=== PATIENT | male | born 1950 | race Asian ===

== ENCOUNTER 2020-08-14 20:48 | Inpatient (IN) | payer OTHER, BC ==
[~2020-08-14] VITALS: Ht 167.6 cm; Wt 45.4 kg
--- NOTE | 2020-08-14 20:48 | NUR ---
PT MEGHAN BAJWAS. TAKEN TO BED 4
[2020-08-14 20:55] VITALS: BP 126/75
--- NOTE | 2020-08-14 20:56 | NUR ---
PT CONNECTED TO THE TURN LASTER. BED IS LOCKED AND IN LOWEST POSITION. SIDE RAILSX1. CALL LIGHT WITHIN REACH. NO ACUTE DISTRESS NOTED AT THIS TIME.
--- NOTE | 2020-08-14 20:56 | NUR ---
69 Y/O MALE BIBA S/P BLADDER RECONSTRUCTION SURGERY C/O 01/19 SHARP DIFFUSE ABD PAINX3 DAYS. PT STATES HE HASNT HAD A BM IN 3 DAYS AND IS STILL PASSING GAS. PT WAS DC'ED FROM [facility] ON THURSDAY. PT HAS A MIDLINE CATHETER PLACED IN THE LEFT UPPER ARM. PT HAS A SERG DRAIN ON THE RIGHT MID ABD WITH SUTURES HOLDING IT. PT HAS A VERTICAL INCISION MIDLINE ON HIS ABD COVERED BY STERI STRIPS. PT HAS 2 MORE HEALED INCISION ON THE LEFT UPPER QUADRANT AND LEFT LOWER QUADRANT, NO DRAINAGE NOTED FROM THESE SITES. BOWEL SOUNDS ARE HYPOACTIVE. ABD TENDER TO PALPATION. LUNG SOUNDS CLEAR. PT ADMITS TO NAUSEA AND DENIES VOMITING. PT DENIES FEVER/CHILLS/DIARRHEA AT THIS TIME. NO ACUTE DISTRESS NOTED AT THIS TIME. PMH: COPH, CKD, CANCER NKA
--- NOTE | 2020-08-14 21:00 | NUR ---
PT CONNECTED TO THE FARMWORKER [employer]. PT IS SITTING IN SEMI FOWLERS POSITION. BED IS LOCKED AND IN LOWEST POSITION. SIDE RAILSX1. NO ACUTE DISTRESS NOTED AT THIS TIME, NO NEW ORDERS AT THIS TIME.
--- NOTE | 2020-08-14 22:00 | NUR ---
UNABLE TO COLLECT URINE SPECIMEN AT THIS TIME DUE TO PT NOT PRODUCING ENOUGH URINE IN THE MENDEZ CATHETER
[2020-08-14] MEDS ORDERED: ONDANSETRON 4 MG/2 ML VIAL IVP ONE (22:30)
[2020-08-14] MEDS ORDERED: MORPHINE SULFATE 4 MG/ML SYR IVP ONE (22:30)
--- NOTE | 2020-08-14 22:50 | NUR ---
LAB AT BEDSIDE
--- NOTE | 2020-08-14 22:55 | NUR ---
PT STATED HE DOESN'T WANT A CT AT THIS TIME AND THAT HE WOULD LIKE TO SPEAK WITH THE DR FOR OTHER OPTIONS. LEENA GROVES MADE AWARE
--- NOTE | 2020-08-14 23:00 | NUR ---
PT CONNECTED TO THE KILN WORKER. PT IS SITTING IN SEMI FOWLERS POSITION. BED IS LOCKED AND IN LOWEST POSITION. SIDE RAILSX1. NO ACUTE DISTRESS NOTED AT THIS TIME, NO NEW ORDERS AT THIS TIME.
[2020-08-14 23:04] LABS: BASOPHILS # (AUTO) 0.2 K/uL (0.00-0.22); BASOPHILS % (AUTO) 2.1 % (0.0-2.0); HEMATOCRIT 29.9 % (36-52); HEMOGLOBIN 9.3 g/dL (12.0-18.0); LYMPHOCYTES # (AUTO) 0.4 K/uL (2.0-11.5); LYMPHOCYTES % (AUTO) 4.3 % (20.5-51.1); MEAN CORPUSCULAR HEMOGLOBIN 26 pg (27-31); MEAN CORPUSCULAR HGB CONC 31 g/dL (33-37); MONOCYTES # (AUTO) 0.6 K/uL (0.8-1.0); MONOCYTES % (AUTO) 6.9 % (1.7-9.3); NEUTROPHILS # (AUTO) 7.9 K/uL (1.8-7.7); NEUTROPHILS % (AUTO) 86.7 % (42.2-75.2); PLATELET COUNT (AUTO) 405 K/uL (140-450); RED BLOOD CELL COUNT(AUTO) 3.65 MIL/uL (4.20-6.10); RED CELL DISTRIBUTION WIDTH 20.3 % (11.6-13.7); WHITE BLOOD COUNT (AUTO) 9.1 K/uL (4.8-10.8)
[2020-08-14 23:28] LABS: ANION GAP 14.8 (8-16); CARBON DIOXIDE 23.7 mmol/L (21-32); CREATININE 2.3 mg/dL (0.6-1.3); POTASSIUM 5.5 mmol/L (3.5-5.1); TOTAL BILIRUBIN 0.3 mg/dL (0.0-1.0)
--- NOTE | 2020-08-14 23:40 | NUR ---
PER RADIOLOGY TO CONSULT MD TO REVIEW LABS PRIOR TO SENDING PT TO CT SCAN
--- NOTE | 2020-08-15 00:10 | NUR ---
Dr. Velazco examining patient.
--- NOTE | 2020-08-15 00:25 | NUR ---
SERVICE LINE COORDINATOR AT BEDSIDE TO TAKE PT TO CT WITHOUT CONTRAST
--- NOTE | 2020-08-15 00:45 | NUR ---
PT CONNECTED TO THE TIRE MAN. PT IS SITTING IN SEMI FOWLERS POSITION. BED IS LOCKED AND IN LOWEST POSITION. SIDE RAILSX1. NO ACUTE DISTRESS NOTED AT THIS TIME, NO NEW ORDERS AT THIS TIME.
--- NOTE | 2020-08-15 01:00 | NUR ---
UNABLE TO COLLECT URINE SPECIMEN AT THIS TIME DUE TO PT NOT PRODUCING ENOUGH URINE IN THE MENDEZ CATHETER
[2020-08-15] MEDS ORDERED: MORPHINE SULFATE 4 MG/ML SYR IVP ONE (01:25)
--- NOTE | 2020-08-15 01:55 | NUR ---
REMOVED 100ML OF YELLOW FLUID FROM SERG DRAIN
--- NOTE | 2020-08-15 01:57 | NUR ---
changed wound dressing; patient tolerated well
[2020-08-15] MEDS ORDERED: NACL 0.9% 1,000 ML IV ONE (02:10)
[2020-08-15] MEDS ORDERED: DEXT 5% / NACL 0.45% 500 ML IV ONE (02:15)
--- NOTE | 2020-08-15 02:15 | NUR ---
PT CONNECTED TO THE DAY HAUL OR FARM CHARTER BUS DRIVER. PT IS SITTING IN SEMI FOWLERS POSITION. BED IS LOCKED AND IN LOWEST POSITION. SIDE RAILSX1. NO ACUTE DISTRESS NOTED AT THIS TIME.
--- NOTE | 2020-08-15 02:40 | NUR ---
collected pcr and nenita swab
--- NOTE | 2020-08-15 02:42 | NUR ---
pt notified of need for NG tube, pt is reluctant and is requesting sedatives, will notify md
--- NOTE | 2020-08-15 02:46 | NUR ---
DR. MATTHEWS NOTIFIED OF PT REFUSING NG TUBE UNLESS HE RECEIVES SEDATIVE PRIOR TO PLACEMENT
[2020-08-15] MEDS ORDERED: SULF-58 PO (02:50)
[2020-08-15] MEDS ORDERED: TRAM50TA1 PO (02:50)
[2020-08-15] MEDS ORDERED: SENN-73 PO (02:50)
[2020-08-15] MEDS ORDERED: XAR10 PO (02:50)
--- NOTE | 2020-08-15 02:50 | NUR ---
pcr and nenita swab collected and walked over to lab
--- NOTE | 2020-08-15 03:00 | NUR ---
UNABLE TO COLLECT URINE SPECIMEN AT THIS TIME DUE TO PT NOT PRODUCING ENOUGH URINE IN THE MENDEZ CATHETER
--- NOTE | 2020-08-15 03:15 | NUR ---
PT CONNECTED TO THE STORES NAVAL. PT IS SITTING IN SEMI FOWLERS POSITION. BED IS LOCKED AND IN LOWEST POSITION. SIDE RAILSX1. NO ACUTE DISTRESS NOTED AT THIS TIME.
[2020-08-15] MEDS ORDERED: LORazepam 2 MG/ML VIAL ONE (03:31)
--- NOTE | 2020-08-15 03:33 | NUR ---
TELEPHONE ORDER FROM FOR ATIVAN 1 MG IVP ONCE PRIOR TO INSERTING NG TUBE.
[2020-08-15] MEDS ORDERED: LORazepam 2 MG/ML VIAL IM/IVP PRN ×2 (03:35→07:15)
--- NOTE | 2020-08-15 04:04 | NUR ---
X-Ray at bedside.
--- NOTE | 2020-08-15 04:08 | NUR ---
PT REMOVED NG TUBE AT THIS TIME. WILL NOTIFY ERMD
--- NOTE | 2020-08-15 04:10 | NUR ---
ADMIT DR MATTHEWS NOTIFED OF PT REMOVING NG TUBE
--- NOTE | 2020-08-15 04:11 | NUR ---
CALLED TO GIVE REPORT TO EDMUND ALMANZA FOR TRANSFER OF CARE AT THIS TIME.
--- NOTE | 2020-08-15 04:15 | NUR ---
PT IS RESTING. VISIBLE RISE AND FALL OF CHEST NOTED. CONNECTED TO THE STOCK SPECULATOR. BED IS LOCKED AND IN LOWEST POSITION. SIDE RAILSX1. NO ACUTE DISTRESS NOTED AT THIS TIME
--- NOTE | 2020-08-15 04:22 | NUR ---
UNABLE TO COLLECT URINE SPECIMEN AT THIS TIME DUE TO PT NOT PRODUCING ENOUGH URINE IN THE MENDEZ CATHETER
--- NOTE | 2020-08-15 04:50 | NUR ---
Patient will be admitted to care of . Admited to MED-SURG. Will go to room 117A. Belongings list completed. Report to EDMUND ALMANZA.
[2020-08-15 05:25] VITALS: BP 118/68
[2020-08-15] MEDS ORDERED: ZOLPIDEM 5 MG TAB PO PRN (07:15)
[2020-08-15] MEDS ORDERED: MORPHINE SULFATE 2 MG/ML SYR IVP PRN (07:15)
[2020-08-15] MEDS ORDERED: AZITHROMYCIN 250 MG TAB PO ONE (07:15)
[2020-08-15] MEDS ORDERED: ACETAMINOPHEN 325 MG TAB PO PRN (07:15)
[2020-08-15] MEDS ORDERED: ONDANSETRON 4 MG/2 ML VIAL IVP PRN (07:15)
[2020-08-15] MEDS ORDERED: ALBUTEROL HFA MDI 90 MCG/ACTUATION 8 GM INH PRN (07:15)
[2020-08-15] MEDS ORDERED: DOCUSATE SODIUM 100 MG GELCAP PO PRN (07:15)
[2020-08-15] MEDS ORDERED: HYDROcodone/APAP 5/325 MG 1 TAB TAB PO PRN (07:15)
--- NOTE | 2020-08-15 07:30 | NUR ---
RECEIVED BEDSIDE REPORT FROM GROUND HOST/HOSTESS NURSE. PT IS A0X 3. RESPIRATIONS EVEN AND UNLABORED. NO S/S OF RESPIRATORY DISTRESS NOTED. PATIENT SKIN IS WARM AND DRY. HAS INCISION SITE ON THE ABDOMEN. HAS MENDEZ CATH IN PLACE. INTACT AND PATENT. PLAN OF CARE WAS DISCUSSED. SAFETY PRECAUTIONS IN PLACE. BED IN LOW POSITION. CALL LIGHT WITHIN REACH WILL CONTINUE TO MONITOR.
[2020-08-15 08:49] LABS: BASOPHILS % (AUTO) 0.2 % (0.0-2.0); HEMATOCRIT 29.3 % (36-52); HEMOGLOBIN 8.9 g/dL (12.0-18.0); LYMPHOCYTES # (AUTO) 0.5 K/uL (2.0-11.5); LYMPHOCYTES % (AUTO) 2.9 % (20.5-51.1); MEAN CORPUSCULAR HEMOGLOBIN 25 pg (27-31); MEAN CORPUSCULAR HGB CONC 30 g/dL (33-37); MEAN CORPUSCULAR VOLUME 83.1 fL (80-94); MONOCYTES # (AUTO) 1.1 K/uL (0.8-1.0); MONOCYTES % (AUTO) 6.1 % (1.7-9.3); NEUTROPHILS # (AUTO) 16.4 K/uL (1.8-7.7); NEUTROPHILS % (AUTO) 90.8 % (42.2-75.2); PLATELET COUNT (AUTO) 394 K/uL (140-450); RED BLOOD CELL COUNT(AUTO) 3.53 MIL/uL (4.20-6.10); RED CELL DISTRIBUTION WIDTH 20.3 % (11.6-13.7); WHITE BLOOD COUNT (AUTO) 18.1 K/uL (4.8-10.8)
[2020-08-15] MEDS ORDERED: VITAMIN D 400 IU TAB PO SCH (09:00)
[2020-08-15] MEDS ORDERED: ZINC SULF 220 MG CAP PO SCH (09:00)
[2020-08-15] MEDS ORDERED: ASCORBIC ACID 500 MG TAB PO SCH (09:00)
[2020-08-15] MEDS ORDERED: ENOXAPARIN 30 MG/0.3 ML SYR SUBQ SCH (09:00)
[2020-08-15] MEDS ORDERED: ENOXAPARIN 40 MG/0.4 ML SYR SUBQ SCH (09:00)
[2020-08-15] MEDS ORDERED: DEXAMETHASONE 4 MG/ML VIAL IVP SCH (09:20)
[2020-08-15] MEDS ORDERED: NACL 0.9% 1,000 ML IV SCH (09:40)
--- NOTE | 2020-08-15 09:44 | NUR ---
PATIENT HAS BEEN SCREENED AND CATEGORIZED HIGH NUTRITION RISK. PATIENT WILL BE SEEN WITHIN 1-2 DAYS OF ADMISSION. 08/15/20-08/16/[address]
--- NOTE | 2020-08-15 09:44 | NUR ---
ALL SCHEDULED MEDS GIVEN. PT IS STABLE. NO DISTRESS NOTED. WILL CONTINUE TO MONITOR.
[2020-08-15 10:10] LABS: PROTHROMBIN TIME 9.9 secs (10.8-13.4)
[2020-08-15 10:13] LABS: ALBUMIN 2.6 g/dL (3.4-5.0); ANION GAP 18.8 (8-16); CARBON DIOXIDE 21.2 mmol/L (21-32); CREATININE 2.8 mg/dL (0.6-1.3); TOTAL BILIRUBIN 0.3 mg/dL (0.0-1.0)
[2020-08-15 10:24] LABS: FREE T4 (FREE THYROXINE) 0.79 ng/dL (0.76-1.46); MAGNESIUM 2.2 mg/dL (1.8-2.4); PHOSPHORUS 5.3 mg/dL (2.5-4.9); THYROID STIMULATING HORMONE 6.1 uIU/mL (0.34-3.74)
[2020-08-15 10:56] LABS: CHOL/HDL RATIO 2.4 (1-4.5)
[2020-08-15] MEDS ORDERED: DEXTROSE 50% 50 ML SYR IVP SCH (11:40)
[2020-08-15] MEDS ORDERED: INSULIN REGULAR, HUMAN 100 UNIT/ML VIAL IVP SCH (11:40)
[2020-08-15] MEDS ORDERED: CALCIUM GLUCONATE 10% 1000 MG/10 ML VIAL IVP ONE (11:40)
--- NOTE | 2020-08-15 12:50 | NUR ---
DR. STANFORD WENT TO SEE PATIENT. HE IRRIGATED PATIENT MENDEZ. MUCUS WAS REMOVED DURING IRRIGATION. NEW ORDERS RECEIVED FROM DR. STANFORD. PATIENT'S MENDEZ IS TO BE IRRIGATED Q4H. PT IS STABLE. WILL CONTINUE TO MONITOR.
[2020-08-15 13:00] VITALS: BP 127/65
[2020-08-15] MEDS ORDERED: CALCIUM GLUCONATE 10% 2,000 MG in NACL 0.9% 100 ML IV SCH (13:00)
--- NOTE | 2020-08-15 13:00 | NUR ---
TRANS IN FROM [id number] DUE BOWEL OBSTRUCTION AND RUPTURE URINARY BLADDER. PT. AWAKE ALERT AND RESPONSIVE TO QUERIES.NOT IN ANY FORM OF DISTRESS.ON ROOM AIR W/ O2 SAT 99%.IVF OF NSS RESTARTED @ 100ML/HR.PM CARE RENDERED.AND PT SLEPT AFTER.
--- NOTE | 2020-08-15 13:17 | NUR ---
DC PLANNIN YRS OLD MALE PATIENT WAS ADMITTED FROM HOME WITH A DX OF SMALL BOWEL OBSTRUCTION. PT HAS A HX OF BLADDER CANCER SURGERY ON THE 08/08/20 , PT HAS BILATERAL UROSTOMY TUBE. PT HAD SURGERY S/P CYSTECTOMY AND NEOBLADDER AT [facility]. SEEN BY UROLOGIST DR STANFORD. PT HAS A TRANSFER ORDER TO [facility] WHERE HE HAD HIS BLADDER SURGERY FOR CARCINOMA POSSIBLE RAPTURE OF BLADDER. . FAXED TO [facility], [facility], [facility] AND [facility]. CM TO FOLLOW Addendum: 08/15/20 at 1650 by Katie Navarro RN DC PLANNING: CALLED [facility] TRANSF[facility] [phone] UNABLE TO TALK TO ANYONE LEFT SEVERAL MESSAGE. WILL KEEP TRYING CM TO FOLLOW Addendum: 08/15/20 at 1707 by Katie Navarro RN DC PLANNING: CALLED [facility] SQL SERVER DEVELOPER SPOKE WITH JOCELYN STATED WILL TRANSFER ME TO BED BOARD ON HOLD FOR MORE THAN 45 MIN, NO ONE TO TALK TO AT THIS TIME. CM TO FOLLOW
--- NOTE | 2020-08-15 13:45 | NUR ---
GAVE REPORT TO ICU NURSE. TRANSFERRED PATIENT TO ICU OVERFLOW ROOM 131
--- NOTE | 2020-08-15 13:50 | NUR ---
ALL SCHEDULED MEDS GIVEN. PT IS STABLE NO DISTRESS NOTED. WILL CONTINUE TO MONITOR.
[2020-08-15 14:00] VITALS: BP 143/73
[2020-08-15 15:00] VITALS: BP 157/88
--- NOTE | 2020-08-15 15:00 | NUR ---
DURING ROUNDS PT FAST ASLEEP NO FACIAL GRIMACES SEEN.KEPT WARM W/ 2 BLANKET. STILL WAITING FOR ROOM AVAILABILITY IN [facility].
[2020-08-15 16:00] VITALS: BP 152/67
--- NOTE | 2020-08-15 16:17 | NUR ---
SOCIAL WORK NOTE: SW WAS UNABLE TO MEET PATIENT AT BEDSIDE. NORRIS CONTACTED EMERGENCY CONTACT ANTWON DAVIS [phone] AND LEFT VM TO COMPLETE ASSESSMENT. NORRIS WILL FOLLOW UP.
--- NOTE | 2020-08-15 16:30 | NUR ---
PT'S TRANSFER STILL PENDING.PT GOT IRRITATED AND WANTED TO GO HOME.TRIED TO PACIFY HIM AND TOLD HIM THAT WE ARE WAITING FOR BED AVAILABILITY IN [facility].
--- NOTE | 2020-08-15 18:35 | NUR ---
ALL NEEDS ATTENDED AND MET DURING THE SHIFT.PT W/ ATTITUDE.NON COOPERATIVE.TO BE ENDORSED TO N [place] NA[employer]ER STILL PENDING TRANSFER.CONDITION UNCHANGED FOR CONTINUITY OF CARE.
[2020-08-15] MEDS ORDERED: SODIUM ZIRCONIUM CYCLOSILICATE 10 GM POWD.PACK PO ONE (19:25)
[2020-08-15 20:00] VITALS: BP 150/89
--- NOTE | 2020-08-15 20:00 | NUR ---
Received pt. angry and uncooperative with care; insisting on wanting to eat despite Dx of SBO & refusing to believe explanations of results of tests. Pt. insisting he can make decisions for himself and would like to leave & stated he was willing to sign out AMA (Against Medical Advice). Obed, binder roller, called & left message; no response @ this time. Charge Nurse, Crystal & Supply Chain Program Manager made aware. Dr. Fregoso called and made aware; stated it is okay for patient to go as pt. refuses to comply w/ care & to believe all MDs diagnosis & orders despite multiple attempts at education & explanations. Risk of & worsening of condition emphasized to patient.
--- NOTE | 2020-08-15 21:15 | NUR ---
Pt. signed out AMA. Chinmay, pt friend, contacted @ & agreed to pickup pt. from lobby. Friend instructed to bring pt. to another medical facility where pt. can continue treatment; Chinmay said he will try but that pt. is very stubborn. Brought pt. to car per wheelchair & assisted as needed.
[2020-08-16] MEDS ORDERED: AZITHROMYCIN 250 MG TAB PO SCH (09:00)
== END 2020-08-15 21:25 | disposition left against medical advice (07) | DRG 871 ==
LOC: MED 20:48 → MMU 08-15 02:10 → EDBD 08-15 02:10 → MTU 08-15 03:38 → MMU 08-15 12:50 → MTU 08-15 14:00 → MMU 08-15 14:48
PROVIDERS: ADMIT Family Medicine; ATTEND Family Medicine
PROC: 0D9670Z Drainage of Stomach with Drainage Device, Via Natural or Artificial Opening (ICD-10-PCS; principal; 2020-08-15)
DX: A41.9 Sepsis, unspecified organism (principal); N17.0 Acute kidney failure with tubular necrosis; U07.1 COVID-19; N13.30 Unspecified hydronephrosis; E87.1 Hypo-osmolality and hyponatremia; K56.609 Unspecified intestinal obstruction, unspecified as to partial versus complete obstruction; J44.9 Chronic obstructive pulmonary disease, unspecified; N18.9 Chronic kidney disease, unspecified; Z53.29 Procedure and treatment not carried out because of patient's decision for other reasons; E87.5 Hyperkalemia; E83.39 Other disorders of phosphorus metabolism; Z85.51 Personal history of malignant neoplasm of bladder
CPT/HCPCS: 36415; 71045; 74250; 80053; 82150; 82948; 83036; 83690; 83735; 83880; 84100; 84439; 84443; 84484; 85025; 85610; 85730; 87081; J0610; J0696; J1100; J1650; J2060; J2270; J2405; J7060; U0003

== ENCOUNTER 2024-01-25 13:24 | Inpatient (IN) | payer OTHER, MEDICAID ==
[~2024-01-25] VITALS: Ht 152.4 cm; Wt 40.8 kg
[~2024-01-25 13:24] MED LIST: SENN-73 PO; SULF-58 PO; TRAM-748 PO; XAR10 PO
[2024-01-25 13:30] VITALS: BP 94/60; PULSE 56; RESP 15; TEMP 97.7; O2SAT 97
[2024-01-25] MEDS ORDERED: cefTRIAXone 1,000 MG VIAL ONE (13:53)
[2024-01-25] MEDS: NACL 0.9% 1,000 ML IV SCH (14:00)
[2024-01-25] MEDS: NACL 0.9% 1,000 ML IV ONE ×2 (14:00→15:40)
[2024-01-25] MEDS: cefTRIAXone 1,000 MG in DEXT 5% MINI-BAG PLUS 50 ML IV ONE (14:01)
[2024-01-25] MEDS ORDERED: NOREPINEPHRINE 4 MG/4 ML VIAL IV ONE ×2 (14:02→19:56)
[2024-01-25 14:12] LABS: LACTIC ACID 5.2 mmol/L (0.4-2.0)
[2024-01-25 14:13] LABS: ANION GAP 23.1 (8-16); CALCIUM 8.1 mg/dL (8.5-10.1); CHLORIDE 89 mmol/L (98-107); CREATININE 3.5 mg/dL (0.6-1.3); GLUCOSE 116 mg/dL (74-106)
[2024-01-25 14:16] LABS: SODIUM SERUM 113 mmol/L (136-145)
[2024-01-25 14:17] LABS: CARBON DIOXIDE 8.9 mmol/L (21-32); UREA NITROGEN, BLOOD 127 mg/dL (7-18)
[2024-01-25] MEDS: ALBUTEROL 0.083% 2.5 MG/3 ML NEBU INH ONE (14:31)
[2024-01-25 14:32] VITALS: PULSE 61; RESP 16; O2SAT 88
[2024-01-25] MEDS: NOREPINEPHRINE 4 MG in DEXTROSE 5% 250 ML IV ONE (14:36)
[2024-01-25] MEDS ORDERED: INTUBATION KIT MC ONE (14:43)
[2024-01-25 14:50] LABS: BASOPHILS % (AUTO) 0.4 % (0.0-2.0); EOSINOPHILS % (AUTO) 0.1 % (0.0-4.0); HEMATOCRIT 31.9 % (36-52); HEMOGLOBIN 9.5 g/dL (12.0-18.0); LYMPHOCYTES # (AUTO) 0.2 K/uL (2.0-11.5); LYMPHOCYTES % (AUTO) 1.7 % (20.5-51.1); MEAN CORPUSCULAR HEMOGLOBIN 30 pg (27-31); MEAN CORPUSCULAR HGB CONC 30 g/dL (33-37); MEAN CORPUSCULAR VOLUME 99.6 fL (80-94); MONOCYTES # (AUTO) 0.3 K/uL (0.8-1.0); MONOCYTES % (AUTO) 2.5 % (1.7-9.3); NEUTROPHILS # (AUTO) 10.7 K/uL (1.8-7.7); NEUTROPHILS % (AUTO) 95.3 % (42.2-75.2); PLATELET COUNT (AUTO) 133 K/uL (140-450); RED BLOOD CELL COUNT(AUTO) 3.21 MIL/uL (4.20-6.10); RED CELL DISTRIBUTION WIDTH 19.4 % (11.6-13.7); WHITE BLOOD COUNT (AUTO) 11.2 K/uL (4.8-10.8)
[2024-01-25] MEDS: SODIUM BICARBONATE 8.4% PFS 50 MEQ/50 ML SYR IVP ONE ×2 (15:00→23:25)
[2024-01-25] MEDS ORDERED: fentaNYL citrate 1 MG in NACL 0.9% 80 ML IV PRN (15:05)
[2024-01-25] MEDS ORDERED: MIDAZOLAM MDV 50 MG in NACL 0.9% 40 ML IV PRN (15:05)
[2024-01-25] MEDS: LORazepam 2 MG/ML VIAL IVP ONE (15:15)
[2024-01-25 16:12] LABS: INR 1.25 (0.8-1.2); PARTIAL THROMBOPLASTIN TIME 41.7 secs (22-35.6)
[2024-01-25] MEDS ORDERED: ONDANSETRON 4 MG/2 ML VIAL IVP PRN (16:30)
[2024-01-25] MEDS ORDERED: VANCOMYCIN PER PHARMACY MC PRN (16:40)
[2024-01-25] MEDS: DEXT 5% /NACL 0.9% 1,000 ML IV SCH (17:10)
[2024-01-25] MEDS ORDERED: DEXTROSE 50% 50 ML SYR IVP ONE (17:31)
[2024-01-25] MEDS ORDERED: VANCOMYCIN HCL 750 MG PDS IV ONE (17:32)
[2024-01-25] MEDS ORDERED: CALCIUM GLUC 1 GM/50 mL NS BAG 50 ML IV ONE (17:33)
[2024-01-25] MEDS: DEXTROSE 50% 50 ML SYR IVP ONE (17:54)
[2024-01-25] MEDS: CALCIUM GLUC 1 GM/50 mL NS BAG 50 ML IV ONE (18:00)
[2024-01-25] MEDS: INSULIN REGULAR, HUMAN 100 UNIT/ML VIAL IV ONE (18:06)
[2024-01-25 18:33] LABS: FLU A ANTIGEN negative (NEGATIVE); FLU B ANTIGEN NEGATIVE (NEGATIVE)
[2024-01-25] MEDS: VANCOMYCIN HCL 750 MG in DEXTROSE 5% 250 ML IV SCH (18:46)
[2024-01-25 18:47] VITALS: BP 112/53; PULSE 58; RESP 16; O2SAT 100
[2024-01-25] MEDS: ALBUTEROL 0.083% 2.5 MG/3 ML NEBU INH PRN (18:54)
[2024-01-25] MEDS: SODIUM BICARBONATE 8.4% 150 MEQ in DEXTROSE 5% 1,000 ML IV SCH (19:00)
[2024-01-25 19:10] LABS: BLOOD GAS BASE EXCESS -20.8 mmol/L (-2.0-2.0); BLOOD GAS HCO3 10.3 mmol/L (22-26); BLOOD GAS PCO2 45.9 mmHg (35-45); BLOOD GAS PH 6.968 (7.35-7.45); BLOOD GAS PO2 273.3 mmHg (75-100)
[2024-01-25 19:11] LABS: BLOOD GAS O2 SAT% 99.4 % (92.0-98.5)
[2024-01-25 19:17] LABS: ANION GAP 15.2 (8-16); CARBON DIOXIDE 10.2 mmol/L (21-32); CHLORIDE 110 mmol/L (98-107); CREATININE 2.5 mg/dL (0.6-1.3); POTASSIUM 3.4 mmol/L (3.5-5.1); SODIUM SERUM 132 mmol/L (136-145)
[2024-01-25 19:22] LABS: CALCIUM 4.2 mg/dL (8.5-10.1); GLUCOSE 1402 mg/dL (74-106)
[2024-01-25 19:23] LABS: UREA NITROGEN, BLOOD 79 mg/dL (7-18)
[2024-01-25] MEDS ORDERED: SODIUM BICARBONATE 8.4% PFS 50 MEQ/50 ML SYR IVP ONE (19:34)
[2024-01-25] MEDS: SODIUM ZIRCONIUM CYCLOSILICATE 10 GM POWD.PACK PO ONE (19:45)
[2024-01-25] MEDS: VASOPRESSIN 40 UNITS in NACL 0.9% 250 ML IV PRN (21:00)
[2024-01-25] MEDS ORDERED: VASOPRESSIN 20 UNITS/ML VIAL ONE (21:04)
[2024-01-25] MEDS: PIPERACILLIN/TAZOBACTAM 2.25 GM in DEXTROSE 5% 50 ML IV SCH (21:12)
[2024-01-25] MEDS ORDERED: PIPERACILLIN/TAZOBACTAM 2.25 GM VIAL IV ONE (21:13)
[2024-01-25 22:30] VITALS: BP 88/61; PULSE 56; PULSE 57; RESP 28; TEMP 84.2; O2SAT 95; O2SAT 97
[2024-01-25 22:49] VITALS: BP 88/62; PULSE 64; PULSE 68; RESP 26; O2SAT 96; O2SAT 97
[2024-01-25 23:00] VITALS: BP 88/62; PULSE 56; RESP 28; TEMP 84.7; O2SAT 96
[2024-01-25] MEDS: NOREPINEPHRINE 4 MG/4 ML VIAL IV ONE (23:05)
[2024-01-25 23:08] LABS: ANION GAP 18.9 (8-16); CALCIUM 6.9 mg/dL (8.5-10.1); CARBON DIOXIDE 10.6 mmol/L (21-32); CHLORIDE 94 mmol/L (98-107); CREATININE 3.1 mg/dL (0.6-1.3); GLUCOSE 331 mg/dL (74-106); POTASSIUM 5.5 mmol/L (3.5-5.1)
[2024-01-25] MEDS: NOREPINEPHRINE 16 MG in DEXTROSE 5% 250 ML IV PRN (23:09)
[2024-01-25 23:11] LABS: SODIUM SERUM 118 mmol/L (136-145)
[2024-01-25 23:12] LABS: UREA NITROGEN, BLOOD 109 mg/dL (7-18)
[2024-01-25] MEDS: PHENYLEPHRINE 40 MG in NACL 0.9% 250 ML IV PRN (23:19)
[2024-01-25] MEDS: PHENYLEPHRINE 10 MG/ML VIAL ONE (23:22)
[2024-01-25 23:27] LABS: APPEARANCE,URINE CLEAR (CLEAR); BILIRUBIN,URINE NEGATIVE (NEGATIVE); BLOOD, URINE 3+ (NEGATIVE); COLOR,URINE YELLOW (YELLOW); LEUKOCYTE ESTERASE ,URINE 2+ (NEGATIVE); NITRITE, URINE NEGATIVE (NEGATIVE); PROTEIN,URINE 1+ (NEGATIVE); UGLUCOSE NEGATIVE (NEGATIVE)
[2024-01-25 23:32] LABS: BACTERIA,URINE 10-30 (MOD) /HPF (None Seen)
[2024-01-25 23:33] LABS: MUCUS,URINE 1+ /LPF (None Seen); SQUAMOUS EPITHELIAL CELL,UR 0-3 (FEW) /LPF (0-3 (FEW))
[2024-01-25] MEDS: SODIUM BICARBONATE 8.4% 100 MEQ in NACL 0.45% 1,000 ML IV SCH (23:35)
[2024-01-25 23:42] LABS: AMPHETAMINE, URINE NEGATIVE ng/ml (NEG <=1000); BARBITURATE, URINE NEGATIVE ng/ml (NEG <=200); BENZODIAZEPINE, URINE NEGATIVE ng/mL (NEG <=200); CANNABINOID, URINE NEGATIVE ng/mL (NEG <=50); COCAINE, URINE NEGATIVE ng/mL (NEG <=300); OPIATE, URINE NEGATIVE ng/mL (NEG <=2000); PHENCYCLIDINE SCREEN,URINE NEGATIVE ng/mL (NEG <=25)
[2024-01-26] VITALS (9 sets, daily range): BP systolic 86–101; BP diastolic 44–71; PULSE 57–78; RESP 28; TEMP 87.4–90; O2SAT 90–99
[2024-01-26] MEDS: NOREPINEPHRINE 4 MG/4 ML VIAL IV ONE (06:05)
[2024-01-26] MEDS ORDERED: CODE BLUE PARTICIPANT 1 EA MISC MC ONE (07:00)
[2024-01-26 07:01] LABS: BASOPHILS % (AUTO) 0.2 % (0.0-2.0); EOSINOPHILS % (AUTO) 0.1 % (0.0-4.0); HEMATOCRIT 34.6 % (36-52); HEMOGLOBIN 10.6 g/dL (12.0-18.0); LYMPHOCYTES # (AUTO) 0.7 K/uL (2.0-11.5); LYMPHOCYTES % (AUTO) 11.1 % (20.5-51.1); MEAN CORPUSCULAR HEMOGLOBIN 30 pg (27-31); MEAN CORPUSCULAR HGB CONC 31 g/dL (33-37); MEAN CORPUSCULAR VOLUME 98.6 fL (80-94); MONOCYTES % (AUTO) 15.1 % (1.7-9.3); NEUTROPHILS # (AUTO) 4.9 K/uL (1.8-7.7); NEUTROPHILS % (AUTO) 73.5 % (42.2-75.2); PLATELET COUNT (AUTO) 79 K/uL (140-450); RED BLOOD CELL COUNT(AUTO) 3.51 MIL/uL (4.20-6.10); RED CELL DISTRIBUTION WIDTH 19.3 % (11.6-13.7); WHITE BLOOD COUNT (AUTO) 6.7 K/uL (4.8-10.8)
[2024-01-26 07:46] LABS: ANION GAP 27.2 (8-16); CALCIUM 7.1 mg/dL (8.5-10.1); CHLORIDE 95 mmol/L (98-107); CREATININE 3.4 mg/dL (0.6-1.3); GLUCOSE 102 mg/dL (74-106); SODIUM SERUM 122 mmol/L (136-145)
[2024-01-26 07:58] LABS: CARBON DIOXIDE 6.6 mmol/L (21-32); POTASSIUM 6.8 mmol/L (3.5-5.1)
[2024-01-26 07:59] LABS: UREA NITROGEN, BLOOD 106 mg/dL (7-18)
== END 2024-01-26 13:57 | DRG 871 ==
LOC: MED 13:24 → MTU 16:30 → MIC 18:38
PROVIDERS: ADMIT Student in an Organized Health Care Education/Training Program; ATTEND Student in an Organized Health Care Education/Training Program
PROC: 5A1935Z Respiratory Ventilation, Less than 24 Consecutive Hours (ICD-10-PCS; principal; 2024-01-25)
PROC: 0BH17EZ Insertion of Endotracheal Airway into Trachea, Via Natural or Artificial Opening (ICD-10-PCS; 2024-01-25)
PROC: 02HV33Z Insertion of Infusion Device into Superior Vena Cava, Percutaneous Approach (ICD-10-PCS; 2024-01-25)
PROC: B548ZZA Ultrasonography of Superior Vena Cava, Guidance (ICD-10-PCS; 2024-01-25)
DX: A41.9 Sepsis, unspecified organism (principal); E43 Unspecified severe protein-calorie malnutrition; J96.01 Acute respiratory failure with hypoxia; R65.21 Severe sepsis with septic shock; J18.9 Pneumonia, unspecified organism; E87.1 Hypo-osmolality and hyponatremia; N17.9 Acute kidney failure, unspecified; N18.4 Chronic kidney disease, stage 4 (severe); E87.20 Acidosis, unspecified; Z68.1 Body mass index [BMI] 19.9 or less, adult; G93.40 Encephalopathy, unspecified; I46.9 Cardiac arrest, cause unspecified; Z20.822 Contact with and (suspected) exposure to COVID-19; E87.5 Hyperkalemia; R73.9 Hyperglycemia, unspecified; Z79.899 Other long term (current) drug therapy
CPT/HCPCS: 36415; 36600; 70450; 71045; 80048; 80202; 80305; 81001; 82009; 82803; 82948; 83605; 83735; 83880; 83930; 83935; 84300; 84484; 85025; 85610; 85730; 86886; 86900; 86901; 87040; 87070; 87081; 87086; 87205; 92950; 93005; 94002; 94003; 94640; 96361; 96365; 96375; 99291; 99292; J0171; J0610; J0696; J1815; J2060; J2250; J2543; J3010; J3370; J3490; J7060; J7613